=== PATIENT | male | born 1950 | race Caucasian/White ===

== ENCOUNTER → 2017-07-30 | Outpatient (CLI) | payer MEDICARE, OTHER ==
[~2017-07-30] MED LIST: ASPIRIN81 MG PO; BENICAR HCT 201 EACH PO; BENICAR40 MG PO; CYCLOBENZAPRINE5 MG PO; FISH OIL OMEGA1 EACH PO; LEVOTHYROXINE175 MCG PO; NORCO 7.5-3251 EACH PO; TUMERIC PO; ULTRAM50 MG PO; VITAMIN D400 UNI1 PO
--- NOTE | 2017-08-02 16:35 | Diagnostic Imaging Report ---
MRI SPINE LUMBAR WO History: Spinal stenosis , low back pain and left leg pain, prior lumbar fusion and laminectomy Comparison studies:04/09/2017 Technique: Sagittal and axial T2 , sagittal T1 and IR, axial spin density oblique. Intravenous contrast: None Findings: Stable postsurgical changes from L5 to S1 laminectomy and fusion Apparent new post surgical changes at left L4-L5 lamina and foramen. Number of lumbar vertebral bodies: 5. Alignment: Loss of normal lumbar lordosis with straightening of the lumbar spine, slightly improved compared to April 2017 No scoliosis. Soft tissues: No T2 hyperintense inflammatory changes. Paraspinal muscles: Stable fatty atrophy within the paraspinous muscles, left greater than right, post surgical changes. Lower thoracic cord: Normal in signal and morphology. The tip of the conus is at L1-L2 . Cauda equina: No masses. No arachnoiditis. Vertebrae: No compression fractures, infection or neoplasm. Degenerative changes: L1-L2: No abnormalities L2-L3: Stable loss of disc height and T2 signal within the disc. Stable symmetrical bulging disc with 4 mm of posterior mass effect. Moderate narrowing of the spinal canal. Stable severe right foraminal narrowing. Stable moderate left foraminal narrowing. Stable moderate right facet arthropathy. L3-L4: Stable loss of T2 signal and disc height. Right asymmetric bulging disc with 2.6 mm of posterior mass effect which is improved. Mild narrowing of the spinal canal. Stable moderate to severe right foraminal narrowing. Stable moderate left foraminal narrowing. L4-L5: New edema seen within the left paraspinous muscles and there is appearance of a left hemilaminectomy. The left neuroforamen is not well-visualized, likely containing scar tissue. Stable decreased T2 signal in disc height. Stable right asymmetric bulging disc with 3 mm and mass effect laterally in the foraminal zone. Stable moderate narrowing of the spinal canal. Stable bilateral advanced facet arthropathy.Stable moderate narrowing right foramen. L5-S1: Stable post surgical changes. No significant spinal canal narrowing. Bilateral foramen with [id number] narrowing. IMPRESSION: 1. New postoperative changes since prior MRI, with postoperative edema at L4-L5 with newly visible presumed scar tissue in the region of the left L4-L5 foramen the appearance of a hemilaminectomy. 2. Slight decreased mass effect from disc bulge at L3-L4 Signed by: Dr. Madi Ortiz M.D. on 08/02/2017 4:31 PM
== END ==
LOC: MRI 16:47
PROVIDERS: ATTEND Neurological Surgery
DX: M48.061 Spinal stenosis, lumbar region without neurogenic claudication (principal)
CPT/HCPCS: 72148

== ENCOUNTER → 2018-10-26 | Outpatient (CLI) | payer MEDICARE, OTHER ==
--- NOTE | 2018-10-26 20:29 | Diagnostic Imaging Report ---
CT CERVICAL SPINE WO HISTORY: Nondisplaced fracture of second cervical vertebra, close fracture COMPARISON: None available at time of dictation. TECHNIQUE: CT of the cervical spine without contrast. Sagittal and coronal reformations were created. One or more of the following dose reduction techniques were used: Automated exposure control, adjustment of the mA and/or kV according to patient size, and/or utilization of iterative reconstruction technique. FINDINGS: Mild bone demineralization limits evaluation. Cervical lordosis is straightened. There is no significant scoliosis. Mildly displaced fracture of the posterior C2 vertebral body involves the bilateral lateral masses, right transverse foramen, and left articular pillar. There is no significant canal stenosis or spondylolisthesis at this level. No definite additional acute fractures, compression deformity, or destructive osseous lesions are seen. The craniocervical junction is intact. No gross spinal canal masses are seen. The paravertebral and paraspinal soft tissues are unremarkable. Degenerative changes: Mild to moderate multilevel spondylosis is most prominent at C5-C6 and C6-C7 C2-C3: Moderate right and mild left foraminal stenoses due to fracture, uncovertebral, and facet arthrosis. No gross canal stenosis. C3-C4: Minimal grade 1 anterolisthesis of C3 on C4 with prominent left C3-C4 facet arthrosis. Mild right and moderate left foraminal stenoses due to uncovertebral and facet arthrosis. C4-C5: At least mild canal stenosis due to posterior disc osteophyte complex. Mild to moderate right and mild left foraminal stenoses due to uncovertebral and facet arthrosis. C5-C6: At least mild canal stenosis due to posterior disc osteophyte complex and ligamentum flavum thickening. Moderate to severe right and mild to moderate left foraminal stenoses due to uncovertebral and facet arthrosis. C6-C7: At least mild canal stenosis due to posterior disc osteophyte complex and ligamentum flavum thickening. Moderate right and mild left foraminal stenoses due to uncovertebral and facet arthrosis. C7-T1: Grade 1 anterolisthesis of C7 on T1 due to facet arthrosis, right greater than left. No gross canal stenosis. Mild bilateral foraminal stenoses due to uncovertebral and facet arthrosis. IMPRESSION: 1. Mildly displaced fracture of the posterior C2 vertebral body involves the bilateral lateral masses, right transverse foramen, and left articular pillar. No significant canal stenosis or spondylolisthesis at this level. 2. Otherwise, no acute osseous abnormalities. 3. Mild to moderate multilevel degenerative changes as described above. Signed by: Dr. Raheem Thacker M.D. on 10/26/2018 8:26 PM
== END ==
LOC: CT 10:07
PROVIDERS: ATTEND Neurological Surgery
DX: S12.101A Unspecified nondisplaced fracture of second cervical vertebra, initial encounter for closed fracture (principal)
CPT/HCPCS: 72125

== ENCOUNTER → 2018-12-15 | Outpatient (CLI) | payer MEDICARE, OTHER ==
--- NOTE | 2018-12-15 16:02 | Diagnostic Imaging Report ---
CT CERVICAL SPINE WO HISTORY: C2 fracture. COMPARISON: Cervical spine CT of 10/26/2018 TECHNIQUE: CT of the cervical spine without contrast. Sagittal and coronal reformations were created. One or more of the following dose reduction techniques were used: Automated exposure control, adjustment of the mA and/or kV according to patient size, and/or utilization of iterative reconstruction technique. FINDINGS: Again seen and not significantly changed in alignment is a mildly displaced fracture of C2 involving the bilateral lateral masses, right transverse foramen. No significant canal stenosis or spondylolisthesis at this level. Compared to the prior study, there has been slight interval development of bony bridging however healing remains largely incomplete. No new acute fractures, compression deformity, or destructive osseous lesions are seen. Again seen are multilevel degenerative changes of the cervical spine with disc space narrowing and osteophyte formation, worst at C5-6 and C6-7. There is straightening of the normal cervical lordosis. The prevertebral soft tissues are normal in thickness. The study is not optimized for evaluation of brain parenchyma, however the partially visualized intracranial structures appear unremarkable. The minimally visualized lung apices are clear. Atherosclerotic calcifications involve the carotid bifurcations bilaterally. IMPRESSION: 1. Unchanged alignment and mild interval bony bridging of the previously seen fracture of the posterior C2 vertebral involving the bilateral lateral masses, right transverse foramen, and left articular pillar. 2. No acute osseous abnormalities. 3. Multilevel degenerative changes as above. Signed by: Marcy Angulo MD on 12/15/2018 3:59 PM
== END ==
LOC: CT 11:36
PROVIDERS: ATTEND Neurological Surgery
DX: S12.101A Unspecified nondisplaced fracture of second cervical vertebra, initial encounter for closed fracture (principal)
CPT/HCPCS: 72125

== ENCOUNTER → 2019-01-27 | Outpatient (CLI) | payer MEDICARE, OTHER ==
--- NOTE | 2019-01-27 10:42 | Diagnostic Imaging Report ---
EXAMINATION: CT of the cervical spine HISTORY: Follow-up cervical spine C2 fracture. COMPARISON: Cervical spine CT 12/15/2018 TECHNIQUE: Multidetector helical axial images were obtained without contrast from the foramen magnum to T1. The images were reconstructed using bone and soft tissue algorithms and were viewed in axial, sagittal and coronal planes. Dose modulation, iterative reconstruction, and/or weight based adjustment of the mA/kV was utilized to reduce the radiation dose to as low as reasonably achievable. FINDINGS: Alignment: Normal alignment and lordosis Soft tissues: Normal Vertebrae: Interval further progression of healing of previously seen fracture through the posterior inferior corner of the C2 vertebral body extending to the left pedicle/articular pillar and bilateral transverse processes, on the right side involving the transverse foramen. Degenerative changes: C1-C2: Mild degenerative changes without stenoses C2-C3: Bilateral uncovertebral and facet arthrosis. Mild right foramina narrowing. C3-C4: Prominent facet arthroses on the left side results in mild right and moderate left foraminal stenoses. Stable grade 1 anterolisthesis. C4-C5: Bilateral uncovertebral and mainly facet arthroses results in moderate foraminal stenoses mainly on the right. Minimal anterolisthesis. C5-C6: Asymmetric right disc osteophyte, uncovertebral arthrosis. Persistent severe right and mild left foraminal stenoses. Stable minimal retrolisthesis. C6-C7: Disc osteophyte complex formation and bilateral uncovertebral arthrosis. Moderate foraminal stenoses worst on the right. Mild canal stenosis. C7-T1: Bilateral facet arthrosis without significant stenoses. Stable minimal anterolisthesis. IMPRESSION: 1. Progressive healing of C2 fracture compared to CT of 12/15/2018. No new fractures. 2. Stable multilevel degenerative changes. Signed by: Dr. Jessica Page M.D. on 01/27/2019 10:39 AM
== END ==
LOC: CT 09:34
PROVIDERS: ATTEND Neurological Surgery
DX: S12.101A Unspecified nondisplaced fracture of second cervical vertebra, initial encounter for closed fracture (principal)
CPT/HCPCS: 72125

== ENCOUNTER 2019-03-16 10:50 | Outpatient (RCR) | payer MEDICARE, OTHER | END 2019-04-08 | LOC: PT 10:50 | PROVIDERS: ATTEND Orthopaedic Surgery | DX: M19.012 Primary osteoarthritis, left shoulder (principal); M75.112 Incomplete rotator cuff tear or rupture of left shoulder, not specified as traumatic; S43.432A Superior glenoid labrum lesion of left shoulder, initial encounter ==

== ENCOUNTER → 2020-08-19 | Outpatient (CLI) | payer MEDICARE, OTHER | LOC: MRI 12:34 | PROVIDERS: ATTEND Neurological Surgery | DX: M51.16 Intervertebral disc disorders with radiculopathy, lumbar region (principal) | CPT/HCPCS: 72114; 72148 ==

== ENCOUNTER → 2020-09-05 | Day surgery (SDC) | payer MEDICARE, OTHER ==
[2020-09-03 12:15] LABS: BASOPHILS # (AUTO) 0.1 (0.0-0.1); BASOPHILS % 0.6 % (0.0-1.0); EOSINOPHILS # (AUTO) 0.2 (0.0-0.4); EOSINOPHILS % 1.5 % (0.0-6.0); HEMATOCRIT 43.3 % (38.2-49.6); HEMOGLOBIN 14.4 g/dL (14.0-18.0); LYMPHOCYTES # (AUTO) 3.3 (1.0-3.2); LYMPHOCYTES % 34.4 % (18.0-39.1); MEAN CORPUSCULAR HEMOGLOBIN 30.2 pg (28-32); MEAN CORPUSCULAR HGB CONC 33.3 g/dL (31-35); MEAN CORPUSCULAR VOLUME 90.8 fL (81-99); MONOCYTES # (AUTO) 0.7 (0.2-0.8); MONOCYTES % 7.1 % (4.4-11.3); NEUTROPHILS # (AUTO) 5.4 (2.1-6.9); NEUTROPHILS % 55.8 % (38.7-80.0); PLATELET COUNT 243 x10e3/uL (140-360); RED BLOOD COUNT 4.77 x10e6/uL (4.3-5.7); RED CELL DISTRIBUTION WIDTH 12.7 % (11.7-14.4)
[2020-09-03 12:37] LABS: INR 0.84; PROTHROMBIN TIME 12.1 seconds (11.9-14.5)
[2020-09-03 12:38] LABS: PARTIAL THROMBOPLASTIN TIME 21.9 seconds (23.8-35.5)
[~2020-09-05] MED LIST changes: +AREDS PO; +BENICAR20 MG PO; +BUPIVACAINE HCL 0.5% INJ 30 ML VIAL INJ ONE; +CEFAZOLIN SOD 1 GM/NS 50ML 100 ML IV ONE; +CRESTOR20 MG PO; +DEXAMETHASONE SOD PHOS INJ 4 MG/ML VIAL ONE; +HYDROCODON-ACE1 EA12 PO; +KETOROLAC TROMETHAMINE 30 MG/ML VIAL ONE; +LIDOCAINE HCL 2% LOCAL INJ 5 ML SDV VIAL INJ ONE; +ONDANSETRON HCL INJ 2MG/ML 2ML 2 MG/ML VIAL ONE; +POVIDONE IODINE 0.05% 0.05 % ML PO ONE; +PROPOFOL IV EMULSION 10 MG/ML 20 ML VIAL ONE; +SEVOFLURANE INHAL SOLN 250 ML PEN BTL ONE; +VITAMIN B122500 MCG PO
[2020-09-05 10:04] VITALS: BP 117/73
== END | disposition home or self-care (01) ==
LOC: OR 07:15
PROVIDERS: ATTEND Neurological Surgery
DX: G56.01 Carpal tunnel syndrome, right upper limb (principal); I10 Essential (primary) hypertension; Z01.810 Encounter for preprocedural cardiovascular examination; Z01.812 Encounter for preprocedural laboratory examination; Z01.818 Encounter for other preprocedural examination; Z20.822 Contact with and (suspected) exposure to COVID-19; Z79.82 Long term (current) use of aspirin
CPT/HCPCS: 36415; 64721; 71046; 85025; 85610; 85730; 93005; J0690; J1100; J1885; J2001; J2405; J2704; U0002

== ENCOUNTER → 2021-03-20 | Outpatient (CLI) | payer MEDICARE, OTHER ==
[~2021-03-20] MED LIST changes: -BUPIVACAINE HCL 0.5% INJ 30 ML VIAL INJ ONE; -CEFAZOLIN SOD 1 GM/NS 50ML 100 ML IV ONE; -DEXAMETHASONE SOD PHOS INJ 4 MG/ML VIAL ONE; -KETOROLAC TROMETHAMINE 30 MG/ML VIAL ONE; -LIDOCAINE HCL 2% LOCAL INJ 5 ML SDV VIAL INJ ONE; -ONDANSETRON HCL INJ 2MG/ML 2ML 2 MG/ML VIAL ONE; -POVIDONE IODINE 0.05% 0.05 % ML PO ONE; -PROPOFOL IV EMULSION 10 MG/ML 20 ML VIAL ONE; -SEVOFLURANE INHAL SOLN 250 ML PEN BTL ONE
== END ==
LOC: MRI 07:47
PROVIDERS: ATTEND Neurological Surgery
DX: M50.120 Mid-cervical disc disorder, unspecified level (principal)
CPT/HCPCS: 72141